=== PATIENT | male | born 1960 | race Hispanic/Latino ===

== ENCOUNTER 2021-06-15 00:31 | Emergency (ER) | payer OTHER ==
[~2021-06-15] VITALS: Ht 160 cm; Wt 77.6 kg
[2021-06-15 01:03] VITALS: BP 169/79
[2021-06-15] MEDS: ORPHENADRINE CITRATE 30 MG/ML ML IM ONE (02:48)
[2021-06-15] MEDS: KETOROLAC 60 MG VIAL (30MG/ML) IM ONE (02:49)
[2021-06-15] MEDS: LIDOCAINE 5% TOPICAL PATCH TP ONE (02:49)
[2021-06-15] MEDS: HYDROCODONE/ACETAMINOPHEN 5/325 MG TAB PO ONE (02:49)
[2021-06-15] MEDS: HYDROCODONE/ACETAMINOPHEN 5/325 MG TAB ONE (02:50)
[2021-06-15] MEDS: KETOROLAC 60 MG VIAL (30MG/ML) ONE (02:50)
[2021-06-15] MEDS: SOLU-MEDROL 125MG VIAL IM ONE (03:20)
[2021-06-15] MEDS ORDERED: PRED20TA3 PO (03:33)
[2021-06-15] MEDS ORDERED: IBUP-2070 PO (03:33)
[2021-06-15 03:35] VITALS: BP 161/73
== END 2021-06-15 03:50 | disposition home or self-care (01) ==
LOC: EDH 00:31
DX: M75.102 Unspecified rotator cuff tear or rupture of left shoulder, not specified as traumatic (principal); I10 Essential (primary) hypertension; F17.200 Nicotine dependence, unspecified, uncomplicated; Z79.52 Long term (current) use of systemic steroids; Z79.1 Long term (current) use of non-steroidal anti-inflammatories (NSAID)
CPT/HCPCS: 73030; 96372 ×3; 99284; J1885; J2360; J2930